=== PATIENT | female | born 1950 | race Asian ===

== ENCOUNTER → 2016-08-28 | Outpatient (CLI) | payer MEDICARE, MEDICAID | END | disposition home or self-care (01) | LOC: CFH 07:54 | PROVIDERS: ATTEND Internal Medicine | DX: J47.9 Bronchiectasis, uncomplicated (principal); J98.4 Other disorders of lung | CPT/HCPCS: 71250 ==

== ENCOUNTER → 2016-09-14 | Outpatient (CLI) | payer MEDICARE, MEDICAID | END | disposition home or self-care (01) | LOC: RAD 10:50 | PROVIDERS: ATTEND Chiropractor | DX: M41.84 Other forms of scoliosis, thoracic region (principal) | CPT/HCPCS: 72072 ==

== ENCOUNTER → 2016-10-08 | Outpatient (CLI) | payer MEDICARE, MEDICAID ==
[~2016-10-08] MED LIST: CHOL100011 PO; MULT-658 PO; OMEG1CAP34 PO; vitamin d PO
== END | disposition home or self-care (01) ==
LOC: CFH 13:12 → MERGE 13:45
PROVIDERS: ATTEND Internal Medicine
DX: J90 Pleural effusion, not elsewhere classified (principal); J47.9 Bronchiectasis, uncomplicated; R91.8 Other nonspecific abnormal finding of lung field
CPT/HCPCS: 71250

== ENCOUNTER 2016-10-10 05:46 | Day surgery (SDC) | payer MEDICARE, MEDICAID ==
[~2016-10-10] VITALS: Ht 152.4 cm; Wt 43.0 kg
[2016-10-10] MEDS ORDERED: LACTATED RINGERS 1,000 ML IV SCH (06:08)
[2016-10-10 06:10] VITALS: BP 131/79
[2016-10-10] MEDS ORDERED: LIDOCAINE 1%, 2ML SQ PRN (06:30)
[2016-10-10] MEDS ORDERED: EPHEDRINE 50 MG/ML, 1ML IVPush PRN (07:00)
[2016-10-10] MEDS ORDERED: METOPROLOL 1 MG/ML, 5ML IV PRN (07:00)
[2016-10-10] MEDS ORDERED: OXYcodone 5 MG/5 ML ORAL.SOL UDC PO PRN (07:00)
[2016-10-10] MEDS ORDERED: PROMETHAZINE 25 MG/ML, 1ML IV PRN (07:00)
[2016-10-10] MEDS ORDERED: METOCLOPRAMIDE 5 MG/ML, 2ML IV PRN (07:00)
[2016-10-10] MEDS ORDERED: FENTANYL PF 100 MCG/2ML IV PRN (07:00)
[2016-10-10] MEDS ORDERED: ONDANSETRON 2MG/ML, 2ML IVPush PRN (07:00)
[2016-10-10] MEDS ORDERED: HYDROmorphone 1 MG/ML, 1ML IV PRN (07:00)
[2016-10-10] MEDS ORDERED: ACETAMINOPHEN 325 MG TABLET PO PRN (07:00)
[2016-10-10] MEDS ORDERED: LABETALOL 5MG/ML, 20ML IV PRN (07:00)
[2016-10-10] MEDS ORDERED: hydrALAzine 20 MG/ML, 1ML IV PRN (07:00)
[2016-10-10] MEDS ORDERED: FENTANYL PF 100 MCG/2ML ONE (07:15)
[2016-10-10] MEDS ORDERED: MIDAZOLAM 1 MG/ML, 2ML ONE (07:15)
[2016-10-10] MEDS ORDERED: KETAMINE 10 MG/ML, 20ML ONE (07:15)
[2016-10-10] MEDS ORDERED: ONDANSETRON 2MG/ML, 2ML ONE (07:43)
[2016-10-10] MEDS ORDERED: DEXAMETHASONE 4 MG/ML, 1ML ONE (07:43)
[2016-10-10] MEDS ORDERED: PHENYLEPHRINE 10 MG/ML ONE (07:43)
== END 2016-10-10 15:00 | disposition home or self-care (01) ==
LOC: OUT 05:46 → MERGE 07:30 → OUT 15:00
PROVIDERS: ATTEND Internal Medicine
DX: C34.12 Malignant neoplasm of upper lobe, left bronchus or lung (principal); Z80.9 Family history of malignant neoplasm, unspecified; Z72.89 Other problems related to lifestyle
CPT/HCPCS: 31623; 31624; 31627; 31628; 31629; 71010; 87015; 87070; 87102; 87116; 87205; 87206; 88104; 88112; 88305; 88333; 88341; 88342; 93005; J1100; J2250; J2370; J2405; J3010; J7120; G0461

== ENCOUNTER → 2016-10-18 | Outpatient (CLI) | payer MEDICARE, MEDICAID | END | disposition home or self-care (01) | LOC: PETCFH 12:31 | PROVIDERS: ATTEND Internal Medicine | DX: C79.51 Secondary malignant neoplasm of bone (principal); C34.90 Malignant neoplasm of unspecified part of unspecified bronchus or lung; J90 Pleural effusion, not elsewhere classified; M89.8X8 Other specified disorders of bone, other site | CPT/HCPCS: 78815; A9552 ==

== ENCOUNTER → 2016-10-22 | Outpatient (CLI) | payer MEDICARE, MEDICAID | END | disposition home or self-care (01) | LOC: RAD 07:13 | PROVIDERS: ATTEND Internal Medicine | DX: I67.82 Cerebral ischemia (principal); R90.82 White matter disease, unspecified; R91.8 Other nonspecific abnormal finding of lung field; C34.90 Malignant neoplasm of unspecified part of unspecified bronchus or lung; E11.9 Type 2 diabetes mellitus without complications; T50.8X1A Poisoning by diagnostic agents, accidental (unintentional), initial encounter | CPT/HCPCS: 36415; 70553; 82565 ==

== ENCOUNTER → 2016-10-24 | Outpatient (CLI) | payer MEDICARE, MEDICAID ==
[~2016-10-24] MED LIST changes: +GADOBUTROL 7.5 MMOL/7.5 ML PFS ONE
== END | disposition home or self-care (01) ==
LOC: RAD 06:54 → EDSTATUS 07:45
PROVIDERS: ATTEND Internal Medicine
DX: C34.12 Malignant neoplasm of upper lobe, left bronchus or lung (principal); C79.51 Secondary malignant neoplasm of bone; M48.04 Spinal stenosis, thoracic region; J90 Pleural effusion, not elsewhere classified; M54.9 Dorsalgia, unspecified
CPT/HCPCS: 72157; A9585

== ENCOUNTER → 2016-10-26 | Outpatient (CLI) | payer MEDICARE, MEDICAID ==
[~2016-10-26] MED LIST changes: -GADOBUTROL 7.5 MMOL/7.5 ML PFS ONE
== END | disposition home or self-care (01) ==
LOC: CFH 07:44
PROVIDERS: ATTEND Radiology Radiation Oncology
DX: C79.51 Secondary malignant neoplasm of bone (principal); C34.90 Malignant neoplasm of unspecified part of unspecified bronchus or lung; M89.8X6 Other specified disorders of bone, lower leg; M89.5 Osteolysis; M47.896 Other spondylosis, lumbar region
CPT/HCPCS: 72170

== ENCOUNTER 2016-12-12 17:02 | Emergency (ER) | payer MEDICARE, MEDICAID ==
[~2016-12-12] VITALS: Ht 152.4 cm; Wt 39.6 kg
[~2016-12-12 17:02] MED LIST changes: +FOLI-17 PO; +ONDA4TAB7 PO
[2016-12-12] MEDS ORDERED: SODIUM CHLORIDE 0.9% 1,000ML IVBOLUS ONE ×2 (17:30→19:00)
[2016-12-12 18:02] LABS: ASPARTATE AMINO TRANSFERASE 26 U/L (15-37); BLOOD UREA NITROGEN 14 mg/dL (7-18)
[2016-12-12] MEDS ORDERED: SODIUM CHLORIDE FLUSH 10ML SYR IVF ONE (19:00)
[2016-12-12] MEDS ORDERED: OMNIPAQUE 350 MG/ML, 100ML BOTTLE ONE (20:56)
[2016-12-12 21:17] VITALS: BP 122/77
== END 2016-12-12 22:28 | disposition home or self-care (01) ==
LOC: ED 22:22
DX: R10.84 Generalized abdominal pain (principal); Z85.118 Personal history of other malignant neoplasm of bronchus and lung
CPT/HCPCS: 36415; 74020; 74177; 80053; 81003; 85025; 93970; 96360; 96361; 99285; J7030; Q9967

== ENCOUNTER → 2016-12-18 | Outpatient (CLI) | payer MEDICARE, MEDICAID ==
[~2016-12-18] MED LIST changes: +GADOBUTROL 7.5 MMOL/7.5 ML VIAL ONE
== END | disposition home or self-care (01) ==
LOC: CFH 12:21
PROVIDERS: ATTEND Radiology Radiation Oncology
DX: C34.90 Malignant neoplasm of unspecified part of unspecified bronchus or lung (principal); C79.51 Secondary malignant neoplasm of bone; M48.56XA Collapsed vertebra, not elsewhere classified, lumbar region, initial encounter for fracture; M50.323 Other cervical disc degeneration at C6-C7 level; M48.02 Spinal stenosis, cervical region; M48.06 Spinal stenosis, lumbar region; M41.86 Other forms of scoliosis, lumbar region
CPT/HCPCS: 72156; 72157; 72158; A9585

== ENCOUNTER → 2016-12-20 | Outpatient (CLI) | payer MEDICARE, MEDICAID | END | disposition home or self-care (01) | LOC: CFH 07:22 | PROVIDERS: ATTEND Radiology Radiation Oncology | DX: C79.51 Secondary malignant neoplasm of bone (principal); C34.12 Malignant neoplasm of upper lobe, left bronchus or lung; R41.82 Altered mental status, unspecified | CPT/HCPCS: 70553; A9585 ==

== ENCOUNTER → 2016-12-31 | Outpatient (CLI) | payer MEDICARE, MEDICAID ==
[~2016-12-31] MED LIST changes: -GADOBUTROL 7.5 MMOL/7.5 ML VIAL ONE
== END | disposition home or self-care (01) ==
LOC: ROC 08:06
PROVIDERS: ATTEND Radiology Radiation Oncology
DX: C34.90 Malignant neoplasm of unspecified part of unspecified bronchus or lung (principal); C79.51 Secondary malignant neoplasm of bone
CPT/HCPCS: 99212; G0463

== ENCOUNTER → 2017-01-16 | Outpatient (CLI) | payer MEDICARE, MEDICAID ==
[~2017-01-16] MED LIST changes: +OMNIPAQUE 350 MG/ML, 100ML BOTTLE ONE
== END | disposition home or self-care (01) ==
LOC: CFH 11:13
PROVIDERS: ATTEND Internal Medicine Hematology & Oncology
DX: K80.20 Calculus of gallbladder without cholecystitis without obstruction (principal); J47.9 Bronchiectasis, uncomplicated; J90 Pleural effusion, not elsewhere classified; R91.8 Other nonspecific abnormal finding of lung field
CPT/HCPCS: 71260; 74177; Q9967

== ENCOUNTER 2017-02-21 11:30 | Day surgery (SDC) | payer MEDICARE, MEDICAID ==
[~2017-02-21] VITALS: Ht 154.9 cm; Wt 35.3 kg
[~2017-02-21 11:30] MED LIST changes: -OMNIPAQUE 350 MG/ML, 100ML BOTTLE ONE
[2017-02-21 12:19] VITALS: BP 134/68
[2017-02-21] MEDS ORDERED: SODIUM CHLORIDE 0.9% 1,000 ML IV SCH (12:21)
[2017-02-21] MEDS ORDERED: CEFAZOLIN PMX 1GM/50ML 50 ML IVPB ONE (12:30)
[2017-02-21] MEDS ORDERED: LIDOCAINE 1%, 20ML ONE (13:36)
[2017-02-21] MEDS ORDERED: MIDAZOLAM 1 MG/ML, 5ML ONE (14:02)
[2017-02-21] MEDS ORDERED: FLUMAZENIL 0.1 MG/1 ML, 5ML ONE (14:02)
[2017-02-21] MEDS ORDERED: NALOXONE 1 MG/ML, 2ML ONE (14:02)
[2017-02-21] MEDS ORDERED: FENTANYL PF 100 MCG/2ML ONE (14:02)
== END 2017-02-21 16:20 | disposition home or self-care (01) ==
LOC: OUT 11:30
PROVIDERS: ATTEND Internal Medicine Hematology & Oncology
DX: C34.12 Malignant neoplasm of upper lobe, left bronchus or lung (principal); Z90.710 Acquired absence of both cervix and uterus
CPT/HCPCS: 36561; 76937; 77001; 99156; 99157; C1788; J0690; J1642; J2250; J3010; J3490; J2310

== ENCOUNTER → 2017-03-28 | Outpatient (CLI) | payer MEDICARE, MEDICAID ==
[~2017-03-28] MED LIST changes: +OMNIPAQUE 350 MG/ML, 75ML BOTTLE ONE
== END | disposition home or self-care (01) ==
LOC: CFH 12:52
PROVIDERS: ATTEND Internal Medicine Hematology & Oncology
DX: C34.12 Malignant neoplasm of upper lobe, left bronchus or lung (principal); C79.51 Secondary malignant neoplasm of bone; J47.9 Bronchiectasis, uncomplicated; K80.20 Calculus of gallbladder without cholecystitis without obstruction
CPT/HCPCS: 71260; 74177; Q9967

== ENCOUNTER → 2017-07-05 | Outpatient (CLI) | payer MEDICARE, MEDICAID ==
[~2017-07-05] MED LIST changes: +OMNIPAQUE 350 MG/ML, 100ML BOTTLE ONE; -OMNIPAQUE 350 MG/ML, 75ML BOTTLE ONE
== END | disposition home or self-care (01) ==
LOC: CFH 06:50
PROVIDERS: ATTEND Internal Medicine Hematology & Oncology
DX: K80.20 Calculus of gallbladder without cholecystitis without obstruction (principal); C34.12 Malignant neoplasm of upper lobe, left bronchus or lung; Z85.118 Personal history of other malignant neoplasm of bronchus and lung
CPT/HCPCS: 71260; 74177; 76700; Q9967